=== PATIENT | female | born 1980 | race Caucasian/White ===

== ENCOUNTER 2022-05-31 01:14 | Emergency (ER) | payer BC ==
[~2022-05-31] VITALS: Ht 172.7 cm; Wt 83.9 kg
[2022-05-31 01:20] VITALS: BP_SYST 155
--- NOTE | 2022-05-31 02:29 | NUR ---
ER examining patient in the triage room.
--- NOTE | 2022-05-31 02:45 | NUR ---
Patient to ER bed [facility] to [facility] for evaluation. Side rails up. Report given to ALEXA STORY(REG).
--- NOTE | 2022-05-31 03:25 | NUR ---
Pt taken to US for imaging.
[2022-05-31] MEDS ORDERED: DIPH25CA83 PO (04:00)
[2022-05-31] MEDS ORDERED: SULFAMETHOXAZOLE/TRIMETHOPR DS 1 TABLET PO ONE (04:00)
[2022-05-31] MEDS ORDERED: IBUP-1969 PO (04:00)
[2022-05-31] MEDS ORDERED: ACETAMINOPHEN 500 MG TABLET PO ONE (04:00)
[2022-05-31] MEDS ORDERED: SULF1TAB48 PO (04:00)
[2022-05-31] MEDS ORDERED: IBUPROFEN 800 MG TABLET PO ONE (04:00)
[2022-05-31 04:20] VITALS: BP_SYST 149
--- NOTE | 2022-05-31 04:20 | NUR ---
Patient given written and verbal discharge instructions and verbalizes understanding. ER MD Bello discussed with patient the results and treatment provided. Patient in stable condition. ID arm band removed. Rx sent to preferred pharmacy. Patient educated on pain management and to follow up with PMD. Opportunity for questions provided and answered. Medication side effect fact sheet provided.
== END 2022-05-31 04:20 | disposition home or self-care (01) ==
LOC: SED 01:14
DX: L03.116 Cellulitis of left lower limb (principal); R22.42 Localized swelling, mass and lump, left lower limb; I10 Essential (primary) hypertension; Z79.899 Other long term (current) drug therapy
CPT/HCPCS: 81025; 93971; 99284

== ENCOUNTER 2022-09-27 01:30 | Emergency (ER) | payer BC ==
[~2022-09-27] VITALS: Ht 165.1 cm; Wt 81.6 kg
[~2022-09-27 01:30] MED LIST: DIPH25CA83 PO; IBUP-1969 PO; SULF1TAB48 PO
[2022-09-27 01:40] VITALS: BP_SYST 132
[2022-09-27] MEDS ORDERED: SULF1TAB48 PO (04:29)
[2022-09-27] MEDS ORDERED: DIPH25CA83 PO (04:29)
[2022-09-27] MEDS ORDERED: DIPHENHYDRAMINE HCL 25 MG CAPSULE PO ONE (04:30)
[2022-09-27 05:03] VITALS: BP_SYST 122
== END 2022-09-27 05:03 | disposition home or self-care (01) ==
LOC: SED 01:30
DX: S80.862A Insect bite (nonvenomous), left lower leg, initial encounter (principal); L29.9 Pruritus, unspecified; L03.116 Cellulitis of left lower limb; Z79.899 Other long term (current) drug therapy; W57.XXXA Bitten or stung by nonvenomous insect and other nonvenomous arthropods, initial encounter; Y93.89 Activity, other specified; Y92.89 Other specified places as the place of occurrence of the external cause; Y99.8 Other external cause status
CPT/HCPCS: 99282; Q0163